=== PATIENT | male | born 1940 | race Caucasian/White ===

== ENCOUNTER → 2017-05-23 | Outpatient (CLI) | payer OTHER, BC ==
[~2017-05-23] VITALS: Ht 172.7 cm; Wt 63.5 kg
[~2017-05-23] MED LIST: ADULT LOW DOSE81 MG PO; ADVIL100 M2 PO; ASPIR 8181 MG PO; CO Q-10100 MG PO; COREG3.125 MG PO; COUMADIN 5 MG TA5 M1 PO; DEMADEX20 MG PO; FERREX 150150 MG PO; FISH OIL 1,2001 EAC3 PO; GARLIC OIL1000 MG PO; GLUCOSAMINE HC500 MG PO; GLUCOSAMINE-CH1 EA15 PO; IBUPROFEN 200200 M1 PO; KLOR-CON 1010 MEQ PO; LIPITOR40 MG PO; LOSARTAN POTASS25 MG PO; NABUMETONE 500500 M1 PO; NORCO 5-325 TA1 EACH PO; PACERONE 200 M200 M1 PO; PERCOCET 5-3251 EACH PO; PREDNISONE 1 MG1 M1 PO; PREDNISONE 10 M10 MG PO; SERTRALINE HCL100 MG PO; TOPROL XL25 MG PO; TRAMADOL 50 MG50 MG PO; TRAZODONE HCL50 MG PO; TRIAMCINOLONE A15 G1 TP; VYTORIN 10-401 EACH PO; XARELTO15 MG PO
--- NOTE | ~2017-05-23 | P ---
[facility] [place] [address] PROCEDURE REPORT Name: MACK FRIEDMAN Rogelio Room #: REG [facility].#: [id number] Admission: 05/23/17 Attend Phys: Yamil Oreilly Discharge: Date of : 38 Report #: [id number] THIS REPORT FOR: //name// CC: Yamil Rodriguez MD DATE OF SERVICE: 05/23/2017 PROCEDURE PERFORMED: Colonoscopy with biopsies. HISTORY OF PRESENT ILLNESS: The patient is a 76-year-old male with a history of colon polyps on last colonoscopy 7 years ago. He is here for routine followup. Denies any symptoms other than mild constipation. He does have a family history of colon cancer in his mother. PROCEDURE: The risks and benefits of the procedure were explained to the patient, those risks including, but not limited to bleeding, perforation, and the risk of sedation. He understood these risks and gave informed consent. Sedation was given using propofol per anesthesia. Next, a digital rectal exam was initially performed, which was normal. Next, using a standard Fujinon colonoscope, the scope was placed in the patient's anus and advanced under direct vision to the cecum. The overall prep was good. In the cecum, there was a 3-mm sessile polyp, this was removed with cold forceps, otherwise normal. Ileocecal valve was normal. Ascending and transverse colon were normal. Multiple diverticula were noted throughout the descending and sigmoid colon, no evidence of inflammation. Also noted in the sigmoid colon, there was a 3-mm sessile polyp, this was removed with cold forceps. The rectal mucosa was normal. On retroflexion, no abnormalities were noted. The scope was then withdrawn and the procedure terminated. The patient tolerated the procedure well. IMPRESSION: 1. Two small colonic polyps. 2. Left-sided diverticulosis. 3. Otherwise, normal colonoscopy. RECOMMENDATIONS: Await biopsy results. Thank you for allowing me to participate in his care. By: [id number] Yamil Beltran MD /nt
--- NOTE | ~2017-05-23 | S ---
[facility] [place] [address] SURGICAL PATH RPT PROCEDURE Name: CECE FRIEDMANCORY Mercado Room #: REG [facility].#: [id number] Admission: 05/23/17 Date of : 38 Discharge: Report #: [id number] Path Case #: [id number] PATHOLOGY REPORT COLLECTION DATE: 05/23/2017 RECEIVED DATE: 05/24/2017 SUBMITTING PHYS: Dr. Yamil Beltran OTHER PHYS: Dr. Ethan Rodriguez SPECIMEN(S) RECEIVED: A.Cecal polyp B.Sigmoid polyp * * * * * * * * * * * * FINAL DIAGNOSIS: A. Colonic mucosa, "cecal polyp", biopsy: - Tubular adenoma. - There is no evidence of high-grade dysplasia or malignancy. B. Colonic mucosa, "sigmoid polyp" biopsy: - Tubular adenoma. - There is no evidence of high-grade dysplasia or malignancy. (SHA:damien; 05/25/2017) PATHOLOGIST: Troy Beasley M.D. REPORT ELECTRONICALLY SIGNED BY: Troy Beasley M.D. DATE/TIME: 05/25/2017 11:01 * * * * * * * * * * * * GROSS PATHOLOGY: A. Received in formalin labeled "Luis Friedman, cecal polyp," is a segment of gilbert soft tissue measuring 0.3 cm in maximum dimension. The specimen is submitted entirely in cassette A1. B. Received in formalin labeled "Luis Friedman, sigmoid polyp," is a segment of gilbert soft tissue measuring 0.4 cm in maximum dimension. The specimen is submitted entirely in cassette B1. (TSD; 05/24/2017) CLINICAL HISTORY: Pre-OP DX: Hx of polyps Post-OP DX: Polyps INITIAL CPT CODE(S): A; 39318 B; 00860 [facility] [address] [address] SURGICAL PATH RPT PROCEDURE Name: LUIS FRIEDMAN Room #: REG JENNA Curiel#: [id number] Admission: 05/23/17 Date of : 38 Discharge: Report #: [id number] Path Case #: [id number] [address], [place] [address] Technical [facility] by [facility] at [address] [place] [address], [facility] [address] [address]. [place] [address] PHONE: [phone] DIRECTOR: Blayne Mansfield M.D. * * * END OF REPORT * * *
== END | disposition home or self-care (01) ==
LOC: GI 08:23
DX: Z09 Encounter for follow-up examination after completed treatment for conditions other than malignant neoplasm (principal); K63.5 Polyp of colon; K57.30 Diverticulosis of large intestine without perforation or abscess without bleeding; K59.00 Constipation, unspecified; E78.00 Pure hypercholesterolemia, unspecified; I25.10 Atherosclerotic heart disease of native coronary artery without angina pectoris; I50.9 Heart failure, unspecified; M19.90 Unspecified osteoarthritis, unspecified site; Z95.0 Presence of cardiac pacemaker; Z87.891 Personal history of nicotine dependence; Z80.0 Family history of malignant neoplasm of digestive organs; Z95.1 Presence of aortocoronary bypass graft; Z98.890 Other specified postprocedural states; Z98.41 Cataract extraction status, right eye; Z98.42 Cataract extraction status, left eye; Z96.1 Presence of intraocular lens; Z95.5 Presence of coronary angioplasty implant and graft; Z79.899 Other long term (current) drug therapy; Z91.040 Latex allergy status
CPT/HCPCS: 62110; 62900

== ENCOUNTER → 2019-10-07 | Outpatient (CLI) | payer OTHER, BC | LOC: SJCVC 09-17 12:24 → SJCVCIMAG 09:47 | DX: Z45.02 Encounter for adjustment and management of automatic implantable cardiac defibrillator (principal); R94.31 Abnormal electrocardiogram [ECG] [EKG]; I08.8 Other rheumatic multiple valve diseases; I11.0 Hypertensive heart disease with heart failure; I50.22 Chronic systolic (congestive) heart failure; I25.810 Atherosclerosis of coronary artery bypass graft(s) without angina pectoris; I48.0 Paroxysmal atrial fibrillation; I25.5 Ischemic cardiomyopathy; E78.5 Hyperlipidemia, unspecified; I65.23 Occlusion and stenosis of bilateral carotid arteries; D47.2 Monoclonal gammopathy; Z95.810 Presence of automatic (implantable) cardiac defibrillator; Z95.1 Presence of aortocoronary bypass graft; Z82.49 Family history of ischemic heart disease and other diseases of the circulatory system; Z87.891 Personal history of nicotine dependence; Z98.890 Other specified postprocedural states; Z79.899 Other long term (current) drug therapy ==

== ENCOUNTER → 2020-03-03 | Outpatient (CLI) | payer OTHER, BC | LOC: SJCVC 11:27 | PROVIDERS: ATTEND Internal Medicine | DX: R94.31 Abnormal electrocardiogram [ECG] [EKG] (principal); I25.810 Atherosclerosis of coronary artery bypass graft(s) without angina pectoris; I11.0 Hypertensive heart disease with heart failure; I50.22 Chronic systolic (congestive) heart failure; I48.0 Paroxysmal atrial fibrillation; E78.5 Hyperlipidemia, unspecified; I25.5 Ischemic cardiomyopathy; I65.23 Occlusion and stenosis of bilateral carotid arteries; I44.2 Atrioventricular block, complete; I34.0 Nonrheumatic mitral (valve) insufficiency; D47.2 Monoclonal gammopathy; Z98.890 Other specified postprocedural states; Z95.1 Presence of aortocoronary bypass graft; Z79.899 Other long term (current) drug therapy; Z82.49 Family history of ischemic heart disease and other diseases of the circulatory system; Z87.891 Personal history of nicotine dependence ==

== ENCOUNTER → 2020-09-08 | Outpatient (CLI) | payer OTHER, BC | LOC: SJCVC 10:23 | PROVIDERS: ATTEND Internal Medicine | DX: R94.31 Abnormal electrocardiogram [ECG] [EKG] (principal); I25.10 Atherosclerotic heart disease of native coronary artery without angina pectoris; I11.0 Hypertensive heart disease with heart failure; I50.22 Chronic systolic (congestive) heart failure; I25.5 Ischemic cardiomyopathy; I48.0 Paroxysmal atrial fibrillation; E85.82 Wild-type transthyretin-related (ATTR) amyloidosis; E78.5 Hyperlipidemia, unspecified; I65.23 Occlusion and stenosis of bilateral carotid arteries; I34.0 Nonrheumatic mitral (valve) insufficiency; Z98.890 Other specified postprocedural states; Z95.1 Presence of aortocoronary bypass graft; Z95.0 Presence of cardiac pacemaker; Z79.899 Other long term (current) drug therapy; Z87.891 Personal history of nicotine dependence; Z86.711 Personal history of pulmonary embolism ==

== ENCOUNTER → 2021-01-26 | Outpatient (CLI) | payer OTHER, BC | LOC: SJCVC 14:37 | PROVIDERS: ATTEND Internal Medicine | DX: R94.31 Abnormal electrocardiogram [ECG] [EKG] (principal); I25.10 Atherosclerotic heart disease of native coronary artery without angina pectoris; I11.0 Hypertensive heart disease with heart failure; I50.22 Chronic systolic (congestive) heart failure; I25.5 Ischemic cardiomyopathy; I48.0 Paroxysmal atrial fibrillation; E85.82 Wild-type transthyretin-related (ATTR) amyloidosis; E78.5 Hyperlipidemia, unspecified; I65.23 Occlusion and stenosis of bilateral carotid arteries; Z98.890 Other specified postprocedural states; Z95.810 Presence of automatic (implantable) cardiac defibrillator; Z88.8 Allergy status to other drugs, medicaments and biological substances; Z79.899 Other long term (current) drug therapy; Z87.891 Personal history of nicotine dependence; Z86.718 Personal history of other venous thrombosis and embolism; Z82.49 Family history of ischemic heart disease and other diseases of the circulatory system ==

== ENCOUNTER → 2021-03-04 | Outpatient (CLI) | payer OTHER, BC | LOC: SJCVCIMAG 07:51 | PROVIDERS: ATTEND Internal Medicine | DX: I65.23 Occlusion and stenosis of bilateral carotid arteries (principal); I08.8 Other rheumatic multiple valve diseases; J90 Pleural effusion, not elsewhere classified; I25.10 Atherosclerotic heart disease of native coronary artery without angina pectoris; I11.0 Hypertensive heart disease with heart failure; I50.22 Chronic systolic (congestive) heart failure; I25.5 Ischemic cardiomyopathy; I48.0 Paroxysmal atrial fibrillation; E85.82 Wild-type transthyretin-related (ATTR) amyloidosis; E78.5 Hyperlipidemia, unspecified; Z95.1 Presence of aortocoronary bypass graft; Z98.890 Other specified postprocedural states; Z88.8 Allergy status to other drugs, medicaments and biological substances; Z79.899 Other long term (current) drug therapy; Z86.718 Personal history of other venous thrombosis and embolism; Z87.891 Personal history of nicotine dependence; Z82.49 Family history of ischemic heart disease and other diseases of the circulatory system ==